=== PATIENT | female | born 1980 | race Caucasian/White ===

== ENCOUNTER 2016-12-11 10:22 | Emergency (ER) | payer MEDICAID ==
[~2016-12-11] VITALS: Ht 215.9 cm; Wt 81.6 kg
[2016-12-11 11:01] VITALS: BP 156/98
== END 2016-12-11 11:51 | disposition home or self-care (01) ==
LOC: ER 10:23
DX: S39.012A Strain of muscle, fascia and tendon of lower back, initial encounter (principal); Z88.0 Allergy status to penicillin; X58.XXXA Exposure to other specified factors, initial encounter; Y93.89 Activity, other specified; Y99.8 Other external cause status; Y92.89 Other specified places as the place of occurrence of the external cause